=== PATIENT | female | born 2000 | race American Indian/Alaskan Native ===

== ENCOUNTER 2020-10-13 22:35 | Inpatient (IN) | payer OTHER ==
[2020-10-14] MEDS ORDERED: LACTATED RINGERS 1,000 ML IV ONE (00:19)
--- NOTE | 2020-10-14 02:16 | History and Physical Report ---
History of Present Illness Date of examination: 10/14/20 History of present illness: Patient presented to labor and delivery with complaints of irregular contractions. Patient had sporadic contractions but did have a category 2 tracing with some sporadic spontaneous heart rate decelerations. In triage patient was treated with IV fluids but the category 2 tracing persist and decision was to admit the patient for induction of labor. 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 no EDC Confirmation: 10/17/2020 Past History : 1 Term Births: 0 Premature Births: 0 Living Children: 0 Para: 0 Mult. Births: 0 Prev : 0 Aborta: 0 Elect. Ab: 0 Spont. 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 of genital herpes: no Rash, Viral, or Febrile illness since last LMP? no Varicella/Chicken Pox Status: Immunized Genetic History Congenital Heart Defect: Mom: no Dad: no Brett Disease: Mom: no Dad: no Thalassemia Mom: no Dad: no Neural Tube Defect Mom: no Dad: no Down's Syndrome Mom: no Dad: no Victor Hugo-Sachs Mom: no Dad: no Sickle Cell Disease/Trait Mom: no Dad: no Hemophilia Mom: no Dad: no Muscular Dystrophy Mom: no Dad: no Cystic Fibrosis Mom: no Dad: no Snyder Chorea Mom: no Dad: no Mental Retardation Mom: no Dad: no Fragile X Mom: no Dad: no Other Genetic/Chromosomal Disorder Mom: no Dad: no Child w/other defect Mom: no Dad: no Enviromental Exposures Xray Exposure: no Medication, drug, or alcohol use since LMP: no Chemical/Other Exposure: no Exposure to Cat Liter: no Hx of Parvovirus (Fifth Disease): no Occupational Exposure to Children: none Current Allergies (reviewed today): No known allergies Past History Past Medical History: other (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) Past Surgical History: other (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) 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 (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) Family/Genetic History: other (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) Social history: full code, other (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) - Obstetrical History Expected Date of Delivery: 10/17/20 Actual Gestation: 39 Week(s) 4 Day(s) : 1 Para: 0 Hx # Term Pregnancies: 0 Number of Pregnancies: 0 Spontaneous Abortions: 0 Induced : 0 Number of Living Children: 0 Medications and Allergies Allergies Allergy/AdvReac Type Severity Reaction Status Date / Time No Known Allergies Allergy Verified 10/14/20 00:22 Home Medications Medication Instructions Recorded Confirmed Last Taken Type No Known Home Medications [No 10/14/20 10/14/20 Unknown History Reported Home Medications] - Vital Signs Vital signs: Vital Signs Pulse BP Pulse Ox 88 137/72 97 10/13/20 23:09 10/13/20 23:09 10/13/20 23:09 Temp Pulse Resp BP Pulse Ox 98.1 F 104 H 18 137/72 98 10/13/20 23:32 10/14/20 01:13 10/13/20 23:32 10/13/20 23:32 10/14/20 01:13 - Physical Exam Breasts: Positive: deferred Cardiovascular: Regular rate Lungs: Positive: Normal air movement Abdomen: Positive: normal appearance Cervix: Positive: other (per RN) Uterus: Positive: enlarged - Obstetrical FHR: category 2 Uterine Contraction Monitor Mode: External Uterine Contraction Pattern: Irregular Uterine Tone Measurement Phase: Resting Uterine Contraction Intensity: Mild Results Result Diagrams: 10/14/20 02:00 All other labs normal. Assessment and Plan - Patient Problems (1) Abnormal test Current Visit: Yes Status: Acute Plan to address problem: Patient will admitted for induction of labor. (2) 39 weeks gestation of Current Visit: Yes Status: Acute (3) Group B streptococcal carriage complicating Current Visit: Yes Status: Acute Plan to address problem: Antibiotic prophylaxis will be started.
[2020-10-14] MEDS ORDERED: LIDOCAINE (2%) 20 MG/1 ML VIAL 20 ML MDV INFILTRATI ONE (02:20)
[2020-10-14] MEDS ORDERED: ePHEDrine SULFATE 50 MG/1 ML INJ IV PRN ×2 (02:20→10:30)
[2020-10-14] MEDS ORDERED: PROMETHAZINE 25 MG TAB PO PRN (02:20)
[2020-10-14] MEDS ORDERED: TERBUTALINE 1 MG/1 ML INJ SUB-Q PRN (02:20)
[2020-10-14] MEDS ORDERED: AMPICILLIN/NS 1 GM/50 ML 1 GM/50 ML BAG IV SCH (03:00)
[2020-10-14] MEDS ORDERED: OXYTOCIN DRIP 30 UNITS/500 ML BAG IV SCH ×3 (03:00→18:37)
[2020-10-14] MEDS ORDERED: AMPICILLIN/NS 2 GM/100 ML 2 GM/100 ML BAG IV ONE (03:03)
[2020-10-14 03:04] LABS: Hematocrit 30.9 % (30.3-42.9); Hemoglobin 10.2 gm/dl (10.1-14.3); Mean Corpuscular HGB Conc 33 % (30-34); Mean Corpuscular Volume 79 fl (79-97); Platelet Count 290 K/mm3 (140-440); Red Cell Distribution Width 16.1 % (13.2-15.2)
[2020-10-14] MEDS: LACTATED RINGERS 1,000 ML IV SCH ×3 (03:20→11:35)
[2020-10-14] MEDS: BUTORPHANOL 2 MG/1 ML INJ IV PRN ×2 (04:54→07:24)
[2020-10-14] MEDS ORDERED: PENICILLIN G POTASSIUM 2.5 MIL.UNITS in SODIUM CHLORIDE 0.9% 50 ML IV SCH (06:25)
--- NOTE | 2020-10-14 07:14 | Progress Note ---
Assessment and Plan A: 20 y.o. @ 39 + wks, SROM @ 0630 clear fluid. Cervical exam /3. P: Continue with Pitocin per protocol. Anticipate . Subjective - Subjective Date of service: 10/14/20 (SROM @ 0630 am clear fluid) Principal diagnosis: IUP @ 39+ wks, Category 2 tracing, augmentation of labor Patient reports: new complaints, loss of fluid, movement normal, contractions Objective - Vital Signs Vital Signs: Vital Signs - 12hr 10/13/20 10/13/20 10/13/20 23:09 23:14 23:19 Temperature Pulse Rate 88 82 84 Respiratory Rate Blood Pressure 137/72 Blood Pressure [Left] O2 Sat by Pulse 97 98 98 Oximetry 10/13/20 10/13/20 10/13/20 23:24 23:29 23:32 Temperature 98.1 F Pulse Rate 84 101 H 94 H Respiratory 18 Rate Blood Pressure Blood Pressure 137/72 [Left] O2 Sat by Pulse 97 98 98 Oximetry 10/13/20 10/13/20 10/13/20 23:34 23:39 23:44 Temperature Pulse Rate 92 H 78 81 Respiratory Rate Blood Pressure Blood Pressure [Left] O2 Sat by Pulse 98 98 98 Oximetry 10/13/20 10/13/20 10/13/20 23:49 23:54 23:59 Temperature Pulse Rate 79 82 79 Respiratory Rate Blood Pressure Blood Pressure [Left] O2 Sat by Pulse 98 98 98 Oximetry 10/14/20 10/14/20 10/14/20 00:04 00:09 00:14 Temperature Pulse Rate 87 92 H 82 Respiratory Rate Blood Pressure Blood Pressure [Left] O2 Sat by Pulse 98 99 98 Oximetry 10/14/20 10/14/20 10/14/20 00:19 00:24 00:33 Temperature Pulse Rate 99 H 85 76 Respiratory Rate Blood Pressure Blood Pressure [Left] O2 Sat by Pulse 98 98 97 Oximetry 10/14/20 10/14/20 10/14/20 00:38 00:43 00:48 Temperature Pulse Rate 86 89 93 H Respiratory Rate Blood Pressure Blood Pressure [Left] O2 Sat by Pulse 98 97 98 Oximetry 10/14/20 10/14/20 10/14/20 00:53 00:58 01:03 Temperature Pulse Rate 101 H 105 H 109 H Respiratory Rate Blood Pressure Blood Pressure [Left] O2 Sat by Pulse 98 97 99 Oximetry 10/14/20 10/14/20 10/14/20 01:08 01:13 02:47 Temperature Pulse Rate 90 104 H 84 Respiratory Rate Blood Pressure Blood Pressure [Left] O2 Sat by Pulse 99 98 99 Oximetry 10/14/20 10/14/20 10/14/20 02:50 02:52 02:57 Temperature Pulse Rate 62 91 H 100 H Respiratory Rate Blood Pressure Blood Pressure [Left] O2 Sat by Pulse 87 98 99 Oximetry 10/14/20 10/14/20 10/14/20 03:01 03:02 03:07 Temperature 99.4 F Pulse Rate 86 97 H 120 H Respiratory 18 Rate Blood Pressure 129/92 Blood Pressure 129/92 [Left] O2 Sat by Pulse 98 98 Oximetry 10/14/20 10/14/20 10/14/20 03:34 04:33 04:59 Temperature Pulse Rate 84 94 H 80 Respiratory Rate Blood Pressure 129/88 146/85 Blood Pressure [Left] O2 Sat by Pulse 94 Oximetry 10/14/20 10/14/20 10/14/20 05:00 05:03 05:04 Temperature Pulse Rate 81 74 82 Respiratory Rate Blood Pressure 128/67 Blood Pressure [Left] O2 Sat by Pulse 91 95 Oximetry 10/14/20 10/14/20 10/14/20 05:09 05:14 05:19 Temperature Pulse Rate 80 82 75 Respiratory Rate Blood Pressure Blood Pressure [Left] O2 Sat by Pulse 96 97 97 Oximetry 10/14/20 10/14/20 10/14/20 05:24 05:29 05:33 Temperature Pulse Rate 78 75 81 Respiratory Rate Blood Pressure 112/65 Blood Pressure [Left] O2 Sat by Pulse 97 97 Oximetry 10/14/20 10/14/20 10/14/20 05:34 05:39 05:44 Temperature Pulse Rate 90 76 82 Respiratory Rate Blood Pressure Blood Pressure [Left] O2 Sat by Pulse 96 96 97 Oximetry 10/14/20 10/14/20 10/14/20 05:49 05:54 05:59 Temperature Pulse Rate 87 87 96 H Respiratory Rate Blood Pressure Blood Pressure [Left] O2 Sat by Pulse 96 96 96 Oximetry 10/14/20 10/14/20 10/14/20 06:03 06:04 06:09 Temperature Pulse Rate 83 92 H 94 H Respiratory Rate Blood Pressure 118/65 Blood Pressure [Left] O2 Sat by Pulse 94 97 97 Oximetry 10/14/20 10/14/20 10/14/20 06:14 06:19 06:24 Temperature Pulse Rate 84 82 90 Respiratory Rate Blood Pressure Blood Pressure [Left] O2 Sat by Pulse 96 97 96 Oximetry 10/14/20 10/14/20 10/14/20 06:29 06:34 06:35 Temperature Pulse Rate 85 82 81 Respiratory Rate Blood Pressure 130/82 Blood Pressure [Left] O2 Sat by Pulse 96 97 Oximetry 10/14/20 10/14/20 10/14/20 06:39 06:44 06:49 Temperature Pulse Rate 91 H 86 91 H Respiratory Rate Blood Pressure Blood Pressure [Left] O2 Sat by Pulse 97 97 97 Oximetry 10/14/20 10/14/20 10/14/20 06:54 06:59 07:01 Temperature Pulse Rate 109 H 92 H 89 Respiratory Rate Blood Pressure Blood Pressure [Left] O2 Sat by Pulse 98 97 94 Oximetry 10/14/20 10/14/20 07:03 07:04 Temperature Pulse Rate 81 103 H Respiratory Rate Blood Pressure 131/69 Blood Pressure [Left] O2 Sat by Pulse 98 Oximetry - Exam Narrative Exam: SROM @ 0630 for clear fluid. Cardiovascular: Regular rate Lungs: Normal air movement Abdomen: Present: normal appearance, soft Vulva: both: normal Uterus: Present: normal FHR: category 1 Uterine Contraction Monitor Mode: External Cervical Dilatation: 2 (Clear fluid noted on peripad) Cervical Effacement Percentage: 50 station: -3 Uterine Contraction Pattern: Regular Uterine Tone Measurement Phase: Resting Uterine Contraction Intensity: Moderate Extremities: normal Deep Tendon Reflex Grade: Normal +2 - Labs Labs: Abnormal Labs 10/14/20 02:00 WBC 19.2 H MCH 26 L RDW 16.1 H Laboratory Results - last 24 hr 10/14/20 10/14/20 02:00 02:00 WBC 19.2 H RBC 3.90 Hgb 10.2 Hct 30.9 MCV 79 MCH 26 L MCHC 33 RDW 16.1 H Plt Count 290 Blood Type B POSITIVE Antibody Screen Negative
[2020-10-14] MEDS: AMPICILLIN/NS 1 GM/50 ML 1 GM/50 ML BAG IV SCH ×2 (07:25→11:35)
[2020-10-14] MEDS ORDERED: NALOXONE 2 MG/2 ML INJ IV PRN (10:30)
--- NOTE | 2020-10-14 10:30 | Anesthesia Consultation ---
Anesthesia Consult and Med Hx Date of service: 10/14/20 - Airway Anesthetic Teeth Evaluation: Good ROM Head & Neck: Adequate Mental/Hyoid Distance: Adequate Mallampati Class: Class II Intubation Access Assessment: Probably Good - Pulmonary Exam CTA: Yes - Cardiac Exam Cardiac Exam: RRR - Pre-Operative Health Status ASA Pre-Surgery Classification: ASA2 Proposed Anesthetic Plan: Epidural - Pulmonary Hx Smoking: No Hx Asthma: No Hx Respiratory Symptoms: No SOB: No COPD: No Home Oxygen Therapy: No Hx Pneumonia: No Hx Sleep Apnea: No - Cardiovascular System Hx Hypertension: No Hx Coronary Artery Disease: No Hx Heart Attack/AMI: No Hx Angina: No Hx Percutaneous Transluminal Coronary Angioplasty (PTCA): No Hx Cardia Arrhythmia: No Hx Pacemaker: No Hx Internal Defibrillator: No Hx Valvular Heart Disease: No Hx Heart Murmur: No Hx Peripheral Vascular Disease: No - Central Nervous System Hx Neuromuscular Disorder: No Hx Seizures: No CVA: No Hx Back Pain: No Hx Psychiatric Problems: No - Gastrointestinal Hx Ulcer: No Hx Gastroesophageal Reflux Disease: Yes - Endocrine Hx Renal Disease: No Hx End Stage Renal Disease: No Hx Cirrhosis: No Hx Liver Disease: No Hx Insulin Dependent Diabetes: No Hx Non-Insulin Dependent Diabetes: No Hx Thyroid Disease: No Hx Hypothyroidism: No Hx Hyperthyroidism: No - Hematic Hx Anemia: No Hx Sickle Cell Disease: No - Other Systems Hx Alcohol Use: No Hx Substance Use: No Hx Cancer: No Hx Obesity: No
[2020-10-14] MEDS ORDERED: fentaNYL-BUPIV 2 MCG/ML-0.125% 200 MCG/100 ML BAG EPIDURAL SCH (11:00)
--- NOTE | 2020-10-14 13:36 | Progress Note ---
Assessment and Plan A: 20 y.o. @ term, active labor with variable and late decelerations. Cervical exam 5.5/80/-1. P: Pitocin turned off. IV fluid bolus. Close continued observation of status. Subjective - Subjective Date of service: 10/14/20 (Pt comfortable with epidural.) Principal diagnosis: IUP @ 39+ wks, Category 2 tracing, augmentation of labor Objective - Vital Signs Vital Signs: Vital Signs - 12hr 10/14/20 10/14/20 10/14/20 02:47 02:50 02:52 Temperature Pulse Rate 84 62 91 H Respiratory Rate Blood Pressure Blood Pressure [Left] O2 Sat by Pulse 99 87 98 Oximetry 10/14/20 10/14/20 10/14/20 02:57 03:01 03:02 Temperature 99.4 F Pulse Rate 100 H 86 97 H Respiratory 18 Rate Blood Pressure 129/92 Blood Pressure 129/92 [Left] O2 Sat by Pulse 99 98 Oximetry 10/14/20 10/14/20 10/14/20 03:07 03:34 04:33 Temperature Pulse Rate 120 H 84 94 H Respiratory Rate Blood Pressure 129/88 146/85 Blood Pressure [Left] O2 Sat by Pulse 98 Oximetry 10/14/20 10/14/20 10/14/20 04:59 05:00 05:03 Temperature Pulse Rate 80 81 74 Respiratory Rate Blood Pressure 128/67 Blood Pressure [Left] O2 Sat by Pulse 94 91 Oximetry 10/14/20 10/14/20 10/14/20 05:04 05:09 05:14 Temperature Pulse Rate 82 80 82 Respiratory Rate Blood Pressure Blood Pressure [Left] O2 Sat by Pulse 95 96 97 Oximetry 10/14/20 10/14/20 10/14/20 05:19 05:24 05:29 Temperature Pulse Rate 75 78 75 Respiratory Rate Blood Pressure Blood Pressure [Left] O2 Sat by Pulse 97 97 97 Oximetry 10/14/20 10/14/20 10/14/20 05:33 05:34 05:39 Temperature Pulse Rate 81 90 76 Respiratory Rate Blood Pressure 112/65 Blood Pressure [Left] O2 Sat by Pulse 96 96 Oximetry 10/14/20 10/14/20 10/14/20 05:44 05:49 05:54 Temperature Pulse Rate 82 87 87 Respiratory Rate Blood Pressure Blood Pressure [Left] O2 Sat by Pulse 97 96 96 Oximetry 10/14/20 10/14/20 10/14/20 05:59 06:03 06:04 Temperature Pulse Rate 96 H 83 92 H Respiratory Rate Blood Pressure 118/65 Blood Pressure [Left] O2 Sat by Pulse 96 94 97 Oximetry 10/14/20 10/14/20 10/14/20 06:09 06:14 06:19 Temperature Pulse Rate 94 H 84 82 Respiratory Rate Blood Pressure Blood Pressure [Left] O2 Sat by Pulse 97 96 97 Oximetry 10/14/20 10/14/20 10/14/20 06:24 06:29 06:34 Temperature Pulse Rate 90 85 82 Respiratory Rate Blood Pressure Blood Pressure [Left] O2 Sat by Pulse 96 96 97 Oximetry 10/14/20 10/14/20 10/14/20 06:35 06:39 06:44 Temperature Pulse Rate 81 91 H 86 Respiratory Rate Blood Pressure 130/82 Blood Pressure [Left] O2 Sat by Pulse 97 97 Oximetry 10/14/20 10/14/20 10/14/20 06:49 06:54 06:59 Temperature Pulse Rate 91 H 109 H 92 H Respiratory Rate Blood Pressure Blood Pressure [Left] O2 Sat by Pulse 97 98 97 Oximetry 10/14/20 10/14/20 10/14/20 07:01 07:03 07:04 Temperature Pulse Rate 89 81 103 H Respiratory Rate Blood Pressure 131/69 Blood Pressure [Left] O2 Sat by Pulse 94 98 Oximetry 10/14/20 10/14/20 10/14/20 07:09 07:14 07:19 Temperature Pulse Rate 101 H 91 H 123 H Respiratory Rate Blood Pressure Blood Pressure [Left] O2 Sat by Pulse 98 97 99 Oximetry 10/14/20 10/14/20 10/14/20 07:21 07:22 07:24 Temperature 97.6 F Pulse Rate 88 108 H 95 H Respiratory 18 Rate Blood Pressure 134/80 Blood Pressure 134/80 [Left] O2 Sat by Pulse 98 98 Oximetry 10/14/20 10/14/20 10/14/20 07:25 07:29 07:30 Temperature Pulse Rate 94 H 93 H 87 Respiratory Rate Blood Pressure Blood Pressure [Left] O2 Sat by Pulse 94 98 89 Oximetry 10/14/20 10/14/20 10/14/20 07:34 07:39 07:44 Temperature Pulse Rate 85 81 81 Respiratory Rate Blood Pressure 124/76 Blood Pressure [Left] O2 Sat by Pulse 99 99 99 Oximetry 10/14/20 10/14/20 10/14/20 07:49 07:54 07:59 Temperature Pulse Rate 85 82 78 Respiratory Rate Blood Pressure Blood Pressure [Left] O2 Sat by Pulse 98 99 98 Oximetry 10/14/20 10/14/20 10/14/20 08:03 08:04 08:09 Temperature Pulse Rate 78 100 H 78 Respiratory Rate Blood Pressure 142/87 Blood Pressure [Left] O2 Sat by Pulse 99 98 Oximetry 10/14/20 10/14/20 10/14/20 08:14 08:19 08:24 Temperature Pulse Rate 81 77 79 Respiratory Rate Blood Pressure Blood Pressure [Left] O2 Sat by Pulse 98 98 98 Oximetry 10/14/20 10/14/20 10/14/20 08:29 08:34 08:39 Temperature Pulse Rate 79 101 H 74 Respiratory Rate Blood Pressure 134/73 Blood Pressure [Left] O2 Sat by Pulse 99 99 98 Oximetry 10/14/20 10/14/20 10/14/20 08:44 08:49 08:54 Temperature Pulse Rate 84 80 88 Respiratory Rate Blood Pressure Blood Pressure [Left] O2 Sat by Pulse 98 100 99 Oximetry 10/14/20 10/14/20 10/14/20 08:59 09:03 09:04 Temperature Pulse Rate 83 79 118 H Respiratory Rate Blood Pressure 127/77 Blood Pressure [Left] O2 Sat by Pulse 100 100 Oximetry 10/14/20 10/14/20 10/14/20 09:09 09:14 09:19 Temperature Pulse Rate 81 82 86 Respiratory Rate Blood Pressure Blood Pressure [Left] O2 Sat by Pulse 100 100 99 Oximetry 10/14/20 10/14/20 10/14/20 09:24 09:29 09:34 Temperature Pulse Rate 91 H 104 H 112 H Respiratory Rate Blood Pressure 157/65 Blood Pressure [Left] O2 Sat by Pulse 100 100 100 Oximetry 10/14/20 10/14/20 10/14/20 09:39 09:44 09:49 Temperature Pulse Rate 117 H 88 101 H Respiratory Rate Blood Pressure Blood Pressure [Left] O2 Sat by Pulse 100 100 100 Oximetry 10/14/20 10/14/20 10/14/20 09:54 09:59 10:03 Temperature Pulse Rate 78 98 H 86 Respiratory Rate Blood Pressure 142/84 Blood Pressure [Left] O2 Sat by Pulse 100 100 Oximetry 10/14/20 10/14/20 10/14/20 10:04 10:09 10:14 Temperature Pulse Rate 120 H 109 H 87 Respiratory Rate Blood Pressure Blood Pressure [Left] O2 Sat by Pulse 100 100 100 Oximetry 10/14/20 10/14/20 10/14/20 10:19 10:24 10:29 Temperature Pulse Rate 85 82 117 H Respiratory Rate Blood Pressure Blood Pressure [Left] O2 Sat by Pulse 100 100 100 Oximetry 10/14/20 10/14/20 10/14/20 10:34 10:35 10:39 Temperature Pulse Rate 121 H 110 H 120 H Respiratory Rate Blood Pressure 142/83 Blood Pressure [Left] O2 Sat by Pulse 99 100 Oximetry 10/14/20 10/14/20 10/14/20 10:44 10:47 10:49 Temperature Pulse Rate 124 H 113 H 117 H Respiratory Rate Blood Pressure 148/94 144/85 Blood Pressure [Left] O2 Sat by Pulse 99 99 Oximetry 10/14/20 10/14/20 10/14/20 10:51 10:53 10:54 Temperature Pulse Rate 118 H 116 H 118 H Respiratory Rate Blood Pressure 138/83 141/80 Blood Pressure [Left] O2 Sat by Pulse 99 Oximetry 10/14/20 10/14/20 10/14/20 10:55 10:57 10:59 Temperature Pulse Rate 121 H 107 H 111 H Respiratory Rate Blood Pressure 143/81 140/75 154/83 Blood Pressure [Left] O2 Sat by Pulse 100 Oximetry 10/14/20 10/14/20 10/14/20 11:01 11:03 11:04 Temperature Pulse Rate 108 H 113 H 111 H Respiratory Rate Blood Pressure 141/69 143/75 Blood Pressure [Left] O2 Sat by Pulse 100 Oximetry 10/14/20 10/14/20 10/14/20 11:05 11:07 11:09 Temperature Pulse Rate 111 H 123 H 111 H Respiratory Rate Blood Pressure 144/66 147/72 142/65 Blood Pressure [Left] O2 Sat by Pulse 99 Oximetry 10/14/20 10/14/20 10/14/20 11:11 11:13 11:14 Temperature Pulse Rate 103 H 90 91 H Respiratory Rate Blood Pressure 141/80 139/65 Blood Pressure [Left] O2 Sat by Pulse 99 Oximetry 10/14/20 10/14/20 10/14/20 11:15 11:18 11:19 Temperature Pulse Rate 81 103 H 96 H Respiratory Rate Blood Pressure 132/59 130/75 130/73 Blood Pressure [Left] O2 Sat by Pulse 99 Oximetry 10/14/20 10/14/20 10/14/20 11:21 11:23 11:24 Temperature Pulse Rate 93 H 76 82 Respiratory Rate Blood Pressure 133/80 128/72 Blood Pressure [Left] O2 Sat by Pulse 100 Oximetry 10/14/20 10/14/20 10/14/20 11:25 11:29 11:31 Temperature Pulse Rate 83 95 H 78 Respiratory Rate Blood Pressure 124/69 128/70 129/71 Blood Pressure [Left] O2 Sat by Pulse 100 Oximetry 10/14/20 10/14/20 10/14/20 11:33 11:34 11:35 Temperature Pulse Rate 80 82 78 Respiratory Rate Blood Pressure 125/69 129/76 Blood Pressure [Left] O2 Sat by Pulse 100 Oximetry 10/14/20 10/14/20 10/14/20 11:37 11:39 11:44 Temperature Pulse Rate 78 79 93 H Respiratory Rate Blood Pressure 127/74 132/78 Blood Pressure [Left] O2 Sat by Pulse 100 100 Oximetry 10/14/20 10/14/20 10/14/20 11:49 11:54 11:59 Temperature Pulse Rate 84 84 91 H Respiratory Rate Blood Pressure 124/58 Blood Pressure [Left] O2 Sat by Pulse 99 99 100 Oximetry 10/14/20 10/14/20 10/14/20 12:02 12:04 12:09 Temperature Pulse Rate 72 84 79 Respiratory Rate Blood Pressure 130/83 122/81 Blood Pressure [Left] O2 Sat by Pulse 100 100 Oximetry 10/14/20 10/14/20 10/14/20 12:14 12:19 12:24 Temperature Pulse Rate 77 77 76 Respiratory Rate Blood Pressure 128/81 Blood Pressure [Left] O2 Sat by Pulse 100 100 100 Oximetry 10/14/20 10/14/20 10/14/20 12:29 12:34 12:39 Temperature Pulse Rate 73 78 73 Respiratory Rate Blood Pressure Blood Pressure [Left] O2 Sat by Pulse 100 100 100 Oximetry 10/14/20 10/14/20 10/14/20 12:40 12:44 12:49 Temperature Pulse Rate 75 75 97 H Respiratory Rate Blood Pressure 130/78 Blood Pressure [Left] O2 Sat by Pulse 100 100 Oximetry 10/14/20 10/14/20 10/14/20 12:54 12:55 12:59 Temperature Pulse Rate 67 61 81 Respiratory Rate Blood Pressure 110/53 Blood Pressure [Left] O2 Sat by Pulse 100 100 Oximetry 10/14/20 10/14/20 10/14/20 13:04 13:09 13:10 Temperature Pulse Rate 78 84 84 Respiratory Rate Blood Pressure 133/69 Blood Pressure [Left] O2 Sat by Pulse 100 100 Oximetry 10/14/20 10/14/20 10/14/20 13:14 13:19 13:24 Temperature Pulse Rate 71 70 71 Respiratory Rate Blood Pressure Blood Pressure [Left] O2 Sat by Pulse 100 100 100 Oximetry 10/14/20 10/14/20 13:25 13:29 Temperature Pulse Rate 67 66 Respiratory Rate Blood Pressure 105/53 Blood Pressure [Left] O2 Sat by Pulse 100 Oximetry - Exam Narrative Exam: Pt with deceleration into the 70's with recovery to baseline. Pitocin turned off, IV fluid bolus initiated, and pt repositioned. Spoke with Dr. Whitten regarding and updated her on pt status. Will continue to closely observe labor. Breasts: deferred Cardiovascular: Regular rate Lungs: Normal air movement Abdomen: Present: normal appearance, soft Vulva: both: normal Uterus: Present: normal FHR: category 2 Uterine Contraction Monitor Mode: Internal Cervical Dilatation: 5.5 (FSE and IUPC placed.) Cervical Effacement Percentage: 80 station: -1 Uterine Contraction Pattern: Regular Uterine Tone Measurement Phase: Resting Uterine Contraction Intensity: Moderate Extremities: normal Deep Tendon Reflex Grade: Normal +2 - Labs Labs: Abnormal Labs 10/14/20 02:00 WBC 19.2 H MCH 26 L RDW 16.1 H Laboratory Results - last 24 hr 10/14/20 10/14/20 02:00 02:00 WBC 19.2 H RBC 3.90 Hgb 10.2 Hct 30.9 MCV 79 MCH 26 L MCHC 33 RDW 16.1 H Plt Count 290 Blood Type B POSITIVE Antibody Screen Negative
[2020-10-14] MEDS ORDERED: METOCLOPRAMIDE 10 MG/2 ML INJ IV ONE (13:58)
[2020-10-14] MEDS ORDERED: BICITRA ORAL LIQD 30ML PO ONE (13:58)
[2020-10-14] MEDS ORDERED: FAMOTIDINE 20 MG/2 ML INJ IV ONE ×2 (13:58→14:00)
[2020-10-14] MEDS ORDERED: ceFAZolin/Water 2 GM/20 ML 2 GM/20 ML SYRINGE IV NR (14:00)
[2020-10-14] MEDS ORDERED: LIDOCAINE MPF (2%) 20 MG/1 ML VIAL 5 ML ONE (14:09)
--- NOTE | 2020-10-14 14:28 | Event Note ---
Date: 10/14/20 Patient with persistent cat 2 FHt's, cervix only 5cm, early decles with slow return and intermittent late decels without pitocin. Discussed concern for restarting pitocin and deterioriation of status explained. Option reviewed: continued ISSA vs C/S. Risk associated with delivery were discussed, including but not limited to, bleeding that may require blood transfusion, infection that may be life threatening, injury to adjacent organs specifically bowel or bladder that may require further surgeries, or major vascular injury. She was also informed that when she has had a delivery she may require repeat deliveries for all subsequent pregnancies. Questions were encouraged and answered, consents were reviewed and signed. Patient voiced understanding and desires to proceed with delivery.
[2020-10-14] MEDS ORDERED: SODIUM CHLORIDE 0.9% IRR 1,500 ML BOTTLE IR ONE (14:48)
[2020-10-14] MEDS ORDERED: WATER FOR IRRIG STERILE 1,500 ML BOTTLE IR ONE (14:50)
[2020-10-14] MEDS ORDERED: KETOROLAC 30 MG/1 ML INJ ONE (14:58)
[2020-10-14] MEDS ORDERED: ONDANSETRON 4 MG/2 ML INJ ONE (14:58)
--- NOTE | 2020-10-14 15:31 | Post Operative Note ---
Pre-op diagnosis: IUO@39weeks, intolerance to labor Post-op diagnosis: same Findings: Liveborn male , wt 6lb 5oz apgars 8/9 grossly normla Uterus, tubes and ovaries Procedure: LTCS Anesthesia: epidural Surgeon: ARMANDO CASTELLON Estimated blood loss: other (800mL) Pathology: none Condition: stable Disposition: PACU
[2020-10-14] MEDS ORDERED: BUPIVACAINE/PF (0.25%) 2.5 MG/ML 30 ML VIAL INFILTRATI ONE (15:37)
[2020-10-14] MEDS ORDERED: PROMETHAZINE 25 MG RECT SUPP PR PRN (18:37)
[2020-10-14] MEDS ORDERED: D5W/LACTATED RINGERS 1,000 ML IV SCH (18:37)
[2020-10-14] MEDS ORDERED: NALOXONE 0.4 MG/1 ML INJ IV PRN (18:37)
[2020-10-14] MEDS ORDERED: MORPHINE 2 MG/1 ML INJ IV PRN (18:37)
[2020-10-14] MEDS ORDERED: WITCH HAZEL/ GLYCERIN PAD TP PRN (18:37)
[2020-10-14] MEDS ORDERED: ACETAMINOPHEN 325 MG TAB PO PRN (18:37)
[2020-10-14] MEDS ORDERED: ONDANSETRON 4 MG/2 ML INJ IV PRN (18:37)
[2020-10-14] MEDS ORDERED: MORPHINE 4 MG/1 ML INJ IV PRN (18:37)
[2020-10-14] MEDS ORDERED: LANOLIN/ZINC/DIMETHICONE (LANSINOH) 7 GM TP PRN (18:37)
[2020-10-14] MEDS ORDERED: SIMETHICONE 80 MG CHEW TAB PO PRN (18:37)
[2020-10-14] MEDS ORDERED: MAGNESIUM HYDROXIDE (MOM) ORAL LIQD UDC PO PRN (18:37)
--- NOTE | 2020-10-14 19:24 | Operative Report ---
Operative Report Operative Report: Date of operation: 10/14/2020 Pre-operative diagnosis: 1. 39 weeks gestational age 2. Nonreassuring heart rate 3. intolerance to labor 4. BMI 26.8 kg/m Post-operative diagnosis: 1. 39 weeks gestational age 2. Nonreassuring heart rate 3. intolerance to labor 4. BMI 26.8 kg/m Procedure name(s): Primary low transverse delivery Surgeon: Nidia Whitten MD Dispatcher Chief Oil: Antwan Ramirez CST Anesthesia: Epidural EBL: 800 mL Urine output: 250 mL of clear urine out at the end of the procedure Fluids: 800 mL Findings: Liveborn male weight 6 Lbs. 5 oz. Apgars of 8 and 9 at one and 5 minutes Indications: [] Procedure: Patient was taking to the operating room. Epidural anesthesia was bolused. Patient was then prepped and draped in the usual sterile fashion Timeout was performed. Once an appropriate level of anesthesia was noted, a Pfannenstiel incision was made and extended the fascia which was incised and extended lateral direction. The overlying fascia was sharply dissected away from the underlying rectus muscles in the superior inferior direction. The midline was entered bluntly. Bladder blade was placed. Vesicouterine fold was incised with blunt dissection bladder flap was created. A transverse incision was made in the lower uterine segment and extended superolateral direction with finger fractionation. Light meconium fluid was noted. was delivered from the cephalic OP position, nuchal cord x1 reduced over the body with delivery, with spontaneous cry and excellent tone. Mouth and nose bulb suctioned. Cord was doubly clamped and cut was given to the resuscitation team present. Placenta was delivered. The uterus was exteriorized and cleaned of any further placental tissue and products of conception. Uterine incision was approximated using 0 Vicryl in a running interlocking stitch followed by further suture of 0 Vicryl in imbricating fashion. When hemostasis was noted the uterus was allowed back in the pelvic cavity. Pelvis was irrigated with warm normal saline. Once hemostasis was n oted the rectus muscles were approximated using 0 Vicryl interrupted simple stitches 3. Once hemostasis was noted the fascia was approximated using 0 Vicryl simple running stitch. The incision was irrigated with warm saline, once hemostasis as noted, the subcuticular adipose tissue was reapproximated using 3-0 Vicryl in a simple running fashion. Skin was approximated using 4-0 Vicryl on a Mahesh needle in a subcuticular manner.
--- NOTE | 2020-10-14 20:47 | Anesthesia Day of Surgery ---
Anesthesia Day of Surgery - Day of Surgery Patient Examined: Yes Patient H&P Reviewed: Yes Patient is NPO: Yes Beta Blockers: No Cardiac Clearance: No Pulmonary Clearance: No Mark's Test: N/A
--- NOTE | 2020-10-14 20:50 | Progress Note ---
Labor Epidural - Labor Epidural Start Time: 10:43 Stop Time: 11:05 Performed by:: FAZAL ROMERO Procedure: Patient is requesting a laboring epidural for laboring pain. Patient IDed, H&P reviewed, all questions and concerns were answered, and consent was signed. Timeout was performed at bedside. Patient in sitting position. Sterile prep and drape was performed. [3] ml of 1% lidocaine skin wheal at L[3]- L [4]. 18- gauge Tuohy epidural needle was advanced to loss of resistance with air technique to 6.5cm. Negative CSF negative blood via Tuohy needle. #27g Spinal needle clear, free flowing CSF, Pecedex 10 mcg. Epidural catheter advanced to [12] centimeters. [negative] Aspiration [negative] test dose. Sterile dressing applied. Patient tolerated procedure. performed by JD ALBERT
--- NOTE | 2020-10-14 20:51 | Post Anesthesia Evaluation ---
- Post Anesthesia Evaluation Patient Participated: Yes Airway Patent: Yes Stable Respiratory Function: Yes Nausea/Vomiting: No Temp > 96.8F: Yes Pain Manageable: Yes Adequeate Hydration: Yes Anesthesia Complications: No Block Receding Appropriately: Yes Patient on Ventilator: No
[2020-10-14] MEDS: KETOROLAC 30 MG/1 ML INJ IV SCH (21:24)
[2020-10-14] MEDS: ceFAZolin/NS 1 GM/50 ML 1 GM/50 ML BAG IV SCH (22:24)
[2020-10-15] MEDS: HYDROcodone/ACETAMINOPHEN 5-325 MG TAB PO PRN ×2 (01:57→18:51)
[2020-10-15] MEDS: KETOROLAC 30 MG/1 ML INJ IV SCH ×2 (03:28→10:45)
[2020-10-15] MEDS ORDERED: DIPHtheria,PERTUSSIS(ACELL),TETANUS VACCINE/PF 0.5 ML VIAL IM ONE (06:00)
[2020-10-15 06:05] LABS: Hematocrit 24.4 % (30.3-42.9); Hemoglobin 7.9 gm/dl (10.1-14.3)
[2020-10-15] MEDS: ceFAZolin/NS 1 GM/50 ML 1 GM/50 ML BAG IV SCH (06:40)
[2020-10-15] MEDS: oxyCODONE /ACETAMINOPHEN 5-325MG TAB PO PRN ×2 (07:40→13:31)
[2020-10-15] MEDS: IBUPROFEN 800 MG TAB PO PRN ×2 (09:39→21:42)
--- NOTE | 2020-10-15 10:08 | Progress Note ---
Assessment and Plan - Patient Problems (1) Status post primary low transverse section Current Visit: Yes Status: Acute Plan to address problem: -doing well -routine post op care -monitor for temp. S/o temp times one while on the antibx. Will con't times 24hours. Subjective - Subjective Date of service: 10/15/20 Principal diagnosis: POD #1 s/p 1LTCS Interval history: Pt doing well. Pain is well controlled at this time. Patient reports: appetite normal, voiding normally, pain well controlled, no dizzy ambulation Orwell: doing well, bottle feeding Objective - Vital Signs Latest vital signs: Vital Signs Temp Pulse Resp BP BP Pulse Ox 10/15/20 09:11 98.0 F 114 H 18 119/60 97 10/15/20 06:07 98.3 F 91 H 18 117/61 98 10/15/20 04:00 98.7 F 10/15/20 01:28 100.9 F H 106 H 18 138/76 100 10/14/20 21:03 99.2 F 85 20 137/79 100 10/14/20 17:40 98.1 F 80 18 104/54 97 10/14/20 16:40 74 14 115/71 98 10/14/20 16:20 69 18 128/84 98 10/14/20 16:05 61 18 126/72 98 10/14/20 15:50 83 16 113/73 98 10/14/20 15:45 112 H 16 123/86 98 10/14/20 15:40 97 H 16 123/62 98 10/14/20 15:35 98.1 F 88 16 123/78 98 10/14/20 13:54 77 100 10/14/20 13:49 75 100 10/14/20 13:44 67 100 10/14/20 13:40 68 113/61 10/14/20 13:39 69 100 10/14/20 13:34 73 100 10/14/20 13:29 66 100 10/14/20 13:25 67 105/53 10/14/20 13:24 71 100 10/14/20 13:19 70 100 10/14/20 13:14 71 100 10/14/20 13:10 84 133/69 10/14/20 13:09 84 100 10/14/20 13:04 78 100 10/14/20 12:59 81 100 10/14/20 12:55 61 110/53 10/14/20 12:54 67 100 10/14/20 12:49 97 H 100 10/14/20 12:44 75 100 10/14/20 12:40 75 130/78 10/14/20 12:39 73 100 10/14/20 12:34 78 100 10/14/20 12:29 73 100 10/14/20 12:24 76 128/81 100 10/14/20 12:19 77 100 10/14/20 12:14 77 100 10/14/20 12:09 79 122/81 100 10/14/20 12:04 84 100 10/14/20 12:02 72 130/83 10/14/20 11:59 91 H 100 10/14/20 11:54 84 124/58 99 10/14/20 11:49 84 99 10/14/20 11:44 93 H 100 10/14/20 11:39 79 132/78 100 10/14/20 11:37 78 127/74 10/14/20 11:35 78 129/76 10/14/20 11:34 82 100 10/14/20 11:33 80 125/69 10/14/20 11:31 78 129/71 10/14/20 11:29 95 H 128/70 100 10/14/20 11:25 83 124/69 10/14/20 11:24 82 100 10/14/20 11:23 76 128/72 10/14/20 11:21 93 H 133/80 10/14/20 11:19 96 H 130/73 99 10/14/20 11:18 103 H 130/75 10/14/20 11:15 81 132/59 10/14/20 11:14 91 H 99 10/14/20 11:13 90 139/65 10/14/20 11:11 103 H 141/80 10/14/20 11:09 111 H 142/65 99 10/14/20 11:07 123 H 147/72 10/14/20 11:05 111 H 144/66 10/14/20 11:04 111 H 100 10/14/20 11:03 113 H 143/75 10/14/20 11:01 108 H 141/69 10/14/20 10:59 111 H 154/83 100 10/14/20 10:57 107 H 140/75 10/14/20 10:55 121 H 143/81 10/14/20 10:54 118 H 99 10/14/20 10:53 116 H 141/80 10/14/20 10:51 118 H 138/83 10/14/20 10:49 117 H 144/85 99 10/14/20 10:47 113 H 148/94 10/14/20 10:44 124 H 99 10/14/20 10:39 120 H 100 10/14/20 10:35 110 H 142/83 10/14/20 10:34 121 H 99 10/14/20 10:29 117 H 100 10/14/20 10:24 82 100 10/14/20 10:19 85 100 10/14/20 10:14 87 100 10/14/20 10:09 109 H 100 Intake and Output 10/14/20 10/15/20 10/15/20 22:59 06:59 14:59 Intake Total 850 360 Output Total 2100 900 Balance -1250 -540 Intake: IV 850 ANCEF/NS 1 GM/50 ML 1 gm 50 In 50 ml @ 100 mls/hr IV Q8H [facility] Rx#:[id number] Intake, Free Water 360 Output: Urine 2100 900 Indwelling Catheter 900 Uretheral ([place]) 1750 Other: Total, Output Amount 300 - Exam Breasts: Present: deferred, normal Cardiovascular: Present: Normal S1, Normal S2 Lungs: Present: Clear to auscultation, Normal air movement Abdomen: Present: normal appearance, soft, normal bowel sounds. Absent: distention, tenderness, guarding Deep Tendon Reflex Grade: Normal +2 Incision: Present: normal, dry, intact, other (open to air) - Labs Labs: Abnormal lab results 10/15/20 Range/Units 05:24 Hgb 7.9 L (10.1-14.3) gm/dl Hct 24.4 L D (30.3-42.9) %
[2020-10-16] MEDS: oxyCODONE /ACETAMINOPHEN 5-325MG TAB PO PRN ×2 (00:11→06:39)
--- NOTE | 2020-10-16 11:49 | Discharge Summary ---
Providers - Providers Date of Admission: 10/14/20 02:21 Date of discharge: 10/16/20 Attending physician: GEREMIAS ORTEZ 10/14/20 18:37 Consult to Gas Tester [CONS] Routine Reason For Exam: Primary care physician: GEREMIAS ORTEZ Hospitalization Reason for admission: active labor, rupture of membranes Delivery: Procedure: section Procedure details: see op note Incision: normal, dry, intact Other procedures: none complications: none [place] baby: male Hospital course: Pt admitted and underwent c/s due to distress. She is doing well today and desires d/c home. She has been Afebrile almost 36 hours. Pt desires depo for contraception. Pt will have injection prior to dc/ to home. Condition at discharge: Good Disposition: DC-01 TO HOME OR SELFCARE - Discharge Diagnoses (1) Status post primary low transverse section Status: Acute Plan - Discharge Medications Prescriptions: Lidocain2.5%/Prilocai2.5% [Emla] 5 gm TP ONCE #1 tube Ferrous Sulfate [Feosol 325 MG tab] 325 mg PO DAILY #90 tablet Ibuprofen [Motrin 800 MG tab] 800 mg PO TID PRN #30 tablet PRN Reason: Pain oxyCODONE /ACETAMINOPHEN [Percocet 5/325 mg] 1 - 2 tab PO Q6HR PRN #14 tablet PRN Reason: Pain - Provider Discharge Summary Activity: routine, no sex for 6 weeks, no heavy lifting 4 weeks Diet: routine Instructions: routine Additional instructions: [] Smoking cessation referral if applicable(refer to patient education folder for contact #) [] Refer to [facility]'s [facility] Booklet Call your doctor immediately for: * Fever > 100.5 * Heavy vaginal bleeding ( >1 pad per hour) * Severe persistent headache * Shortness of breath * Reddened, hot, painful area to leg or breast * Drainage or odor from incision. * Keep incision clean and dry at all times and follow doctor's instructions regarding bathing/showering - Follow up plan Follow up: GEREMIAS ORTEZ MD [Primary Care Provider] - 7 Days Forms: [facility] Discharge Summary
[2020-10-16] MEDS ORDERED: medroxyPROGESTERone ACETATE 150 MG/ML SYRINGE IM ONE (12:11)
[2020-10-16] MEDS: IBUPROFEN 800 MG TAB PO PRN (12:26)
[2020-10-16 14:47] VITALS: BP 130/78
== END 2020-10-16 15:45 | disposition home or self-care (01) | DRG 765 ==
LOC: TRG 22:35 → APU 22:45 → TRG 10-14 02:20 → OBSVTOIN 10-14 02:21 → LD 10-14 02:21 → OB 10-14 18:14
PROVIDERS: ADMIT Obstetrics & Gynecology; ATTEND Obstetrics & Gynecology
PROC: 10D00Z1 Extraction of Products of Conception, Low, Open Approach (ICD-10-PCS; principal; 2020-10-14)
DX: O76 Abnormality in fetal heart rate and rhythm complicating labor and delivery (principal); D62 Acute posthemorrhagic anemia; Z3A.39 39 weeks gestation of pregnancy; Z37.0 Single live birth; O90.81 Anemia of the puerperium; O99.824 Streptococcus B carrier state complicating childbirth
CPT/HCPCS: 36415; 85014; 85018; 85027; 86592; 86762; 86850; 86900; 86901; 87806; G0378; J0290; J0595; J0690; J1050; J1885; J2270; J2405; J2590; J2765; J7120; J7121; U0003